=== PATIENT | female | born 1990 | race Caucasian/White ===

== ENCOUNTER 2016-05-12 18:44 | Emergency (ER) | payer SELFPAY ==
--- NOTE | ~2016-05-12 | CR63 ---
[facility]. [facility] A Service of [facility] & [facility] RADIOLOGY TEXT RESULTS PATIENT: BOBBI MACIEL LOCATION: SED : [birth year] UNIT #: [id number] AGE: [address]: Rianna Gonzales APRN SEX: F ORDER DR: [id number] [address] [address] [id number] E MR#: [id number] Acc #: [id number] NAME: BOBBI MACIEL : 1990 SEX: F STUDY DATE/TIME: 05/12/2016 19:12 UNIT: SED ROOM: STUDY DESCRIPTION: CR Chest 2 View Attending Physician: Rianna Gonzales A.P.R.N. Ordering Physician: Rianna Kilgore A.P.R.N. Primary Care Physician: No Primary Care Physician MEDICAL IMAGING REPORT This report is preliminary unless electronic signature is present. EXAM PA and lateral chest HISTORY Chest pain today after fall. FINDINGS 2 views of the chest demonstrate the cardiac size and pulmonary vascularity are normal. No infiltrates or effusions. IMPRESSION Negative Dictated by... Abdi Hoover M.D. THIS IS AN ELECTRONICALLY VERIFIED REPORT Abdi Hoover M.D. at 05/13/2016 10:56 PM DARLENE/erinn TD: 05/13/2016 00:21 JOB #: [id number] MEDICAL IMAGING REPORT Page 1 of 1
== END 2016-05-12 20:34 | disposition home or self-care (01) ==
LOC: SED 18:44
DX: S20.219A Contusion of unspecified front wall of thorax, initial encounter (principal); V49.40XA Driver injured in collision with unspecified motor vehicles in traffic accident, initial encounter; Y93.89 Activity, other specified; Y92.410 Unspecified street and highway as the place of occurrence of the external cause
CPT/HCPCS: 71020; 99283